=== PATIENT | female | born 1975 | race Caucasian/White ===

== ENCOUNTER 2021-06-02 13:23 | Emergency (ER) | payer OTHER, SELFPAY ==
--- NOTE | ~2021-06-02 | CT_ITS ---
EXAMINATION: CT abdomen pelvis wo con DATE: 06/02/2021 15:07 INDICATION: Left flank pain. TECHNIQUE: Computed tomography (CT) of the abdomen and pelvis was performed without intravenous contr ast. Automated exposure control and iterative reconstruction technique were employed. The dose-length product was 677.41 mGy-cm. COMPARISON: None. FINDINGS: The visualized portions of the lung bases demonstrate mild atelectasis. No pleural effusion . The heart size is normal. No pericardial effusion. The liver, gallbladder, spleen, pancreas, and ri ght adrenal gland are normal. There is a 2.1 cm mass in left adrenal gland measuring low-attenuation, consistent with an adenoma. The kidneys are normal. There is no urolithiasis. There are inserts in t he fallopian tubes. There is a left inguinal hernia containing fat. There is diverticulosis of the co seven without evidence of diverticulitis. There are no dilated loops of bowel. The appendix is normal. There are no pathologically enlarged lymph nodes. There is no free intraperitoneal fluid. There are c hronic bilateral L5 pars defects. There is 4 mm anterolisthesis of L5 on S1. There is moderate lower lumbar and lower thoracic spondylosis. IMPRESSION: 1. No urolithiasis. 2. Left inguinal hernia containing fat. Reviewed, dictated and finalized at location A.
[2021-06-02 13:37] VITALS: BP 119/76; PULSE 88; RESP 16; TEMP 36.1; O2SAT 99
[2021-06-02] MEDS: KETOROLAC (*BKC) 60 MG/2 ML VIAL IM (14:14)
[2021-06-02 14:16] LABS: Basophils Absolute Auto 0.04 K/mm3 (0.00-0.10); Basophils Percent Auto 0.5 % (0.0-1.0); Eosinophils Absolute Auto 0.08 K/mm3 (0.02-0.50); Hematocrit 42.9 % (35.0-49.0); Hemoglobin 14.1 g/dL (12.0-15.0); Immature Granulocyte Percent A 1.2 % (0.0-0.0); Lymphocytes Absolute Auto 2.64 K/mm3 (1.10-4.50); Lymphocytes Percent Auto 32.6 % (18.0-42.0); Mean Corpuscular HGB Conc 32.9 g/dL (32.0-36.0); Mean Corpuscular Hemoglobin 31.1 pg (27.0-31.0); Mean Corpuscular Volume 94.5 fL (78.0-102.0); Mean Platelet Volume 10.6 fl (9.2-11.8); Monocytes Absolute Auto 0.53 K/mm3 (0.10-0.90); Monocytes Percent Auto 6.6 % (2.0-11.0); Neutrophils Absolute Auto 4.7 K/mm3 (1.7-7.2); Neutrophils Percent Auto 58.1 % (50.0-70.0); Platelet Count Result 291 K/mm3 (150-420); Red Blood Count 4.54 M/mm3 (4.20-5.40); Red Cell Distribution Width 12.4 % (11.6-14.4); White Blood Count 8.1 K/mm3 (4.8-10.8)
[2021-06-02 14:23] LABS: Add Urine Microscopic? YES; Appearance Urine Clear (Clear); Bilirubin Urine Negative (Negative); Blood Urine Negative (Negative); Color Urine Light Yellow (Yellow); Glucose Urine UA Negative (Negative); Ketones Urine Negative (Negative); Leukocyte Esterase Ur 1+ (Negative); Nitrate Urine Negative (Negative); Protein Urine Negative (Negative); Specific Grav Ur >= 1.030 (1.010-1.020); Urobilinogen Urine 0.2 mg/dL (0.2-1.0); pH Urine 5.5 (5.0-8.0)
[2021-06-02 14:30] LABS: Amphetamine Screen Urine Negative (Negative); Barbiturate Screen Urine Negative (Negative); Benzodiazepines Screen Urine Negative (Negative); Cannabinoid Screen Urine Positive (Negative); Cocaine Screen Urine Negative (Negative); Methadone Screen Urine Negative (Negative); Opiate Screen Urine Negative (Negative); Phencyclidine Screen Urine Negative (Negative)
[2021-06-02 14:31] LABS: Alanine Aminotransferase 33 U/L (14-59); Albumin Level 3.2 g/dL (3.4-5.0); Alkaline Phosphatase 139 U/L (46-116); Anion Gap 8 mmol/L (8-16); Aspartate Amino Transferase 15 U/L (15-37); Bilirubin,Total 0.2 mg/dL (0.00-1.00); Blood Urea Nitrogen 14 mg/dL (7-18); Calcium 8.7 mg/dL (8.5-10.1); Carbon Dioxide 29 mmol/L (21-32); Chloride 103 mmol/L (98-108); Estimated CRCL calculation 75 ml/min; Estimated Glomerular Filt Rate > 60; Ethanol < 3 mg/dL (0-6); Glucose 106 mg/dL (70-99); Osmolality Calculated 290 mOsm/kg (285-295); Potassium 4.3 mmol/L (3.5-5.1); Sodium 140 mmol/L (136-145); Total Protein 6.4 g/dL (6.4-8.2)
[2021-06-02 14:34] LABS: Lactic Acid Reflex 1.1 mmol/L (0.4-2.0)
[2021-06-02 14:36] LABS: Bacteria Urine 2+ /hpf; Squamous Epithelial Cell Urine Moderate /hpf (Few)
[2021-06-02 14:43] LABS: SPREG INTERNAL CONTROL Positive; Serum Qual hCG Negative
--- NOTE | 2021-06-02 16:32 | ED.ABDPAIN ---
HPI - Abdominal Pain General Chief Complaint: Urogenital-Female Stated Complaint: possible kidney infection Time Seen by Provider: 06/02/21 13:25 Source: patient and RN notes reviewed Mode of arrival: ambulatory Limitations: no limitations History of Present Illness MD elicited complaint: abdominal pain Onset (ago): day(s) (1) Location: suprapubic Severity: mild Pain scale (0-10): 4 Quality: cramping, aching and dull Radiation: none Exacerbating factors: nothing Relieving factors: nothing Associated symptoms: nausea Related Data Patient : No Allergies Allergy/AdvReac Type Severity Reaction Status Date / Time codeine Allergy Mild Itching Verified 06/02/21 13:42 nickel Allergy Mild Itching Verified 06/02/21 13:42 Review of Systems Review of Systems: All systems reviewed & are unremarkable except as noted in HPI and below PMFSH Past Medical History Medical History Abdominal pain Urinary tract infection Exam Const: General: no acute distress Nutritional Appearance: well nourished Orientation/consciousness: patient oriented x3 Limitations: no limitations HENMT: Head: normal to inspection Ears: external ears normal, TM's normal bilaterally and EAC's normal General nose exam: Normal external nose present and Normal nares present Face and sinus: normal facial exam and sinuses nontender Mouth: Yes lip normal and Yes moist mucous membranes Throat: posterior oropharynx normal Eyes: Conjunctivae: conjunctivae normal Pupils: Equal, round and reactive pupils present EOM: EOMs intact bilaterally Neck: Neck: normal visual inspection and no lymphadenopathy Chest: Chest palpation & inspection: normal inspection of the chest Resp: Effort & Inspection: normal respiratory effort Auscultation: clear to auscultation bilaterally Cardio: Rate: regular rate Rhythm: regular rhythm GI: GI Palp: Yes Soft to palpation and Yes Tenderness to palpation present (GI) (minimal suprapubic tenderness) : General: Yes no CVA tenderness Back/Spine/Pelvis: Back: no CVA tenderness Skin: General skin exam: normal color Rashes: no rashes Neuro: General: patient oriented x3, moves all extremities, no meningeal signs, no focal motor deficits and CN's II-XI intact bilaterally Extrem: General: normal to inspection and no pedal edema Psych: Appearance: grossly normal and well kempt Mental Status: mental status grossly normal Affect: normal affect Attitude: cooperative Thought content: Yes Normal thought content present Course Course Emergency Course: Pt was stable in the ED. less painful. Reevaluation(s) Date: 06/02/21 Time: 14:23 Vital Signs Vital signs: Vital Signs Temperature 36.1 C L 06/02/21 13:37 Pulse Rate 88 06/02/21 13:37 Respiratory Rate 16 06/02/21 13:37 Blood Pressure 119/76 06/02/21 13:37 Pulse Oximetry 99 06/02/21 13:37 Temperature 36.4 C L 06/02/21 16:42 Pulse Rate 88 06/02/21 16:42 Respiratory Rate 16 06/02/21 16:42 Blood Pressure 131/88 06/02/21 16:42 Pulse Oximetry 100 06/02/21 16:42 MDM - Abdominal Pain Differential Diagnosis Differential diagnosis: Likely abdominal pain and other (UTI, ) Medical Records Attestation: I reviewed the patient's medical records. Lab Data Attestation: I reviewed the patient's lab results. Result diagrams: 06/02/21 14:08 06/02/21 14:08 Labs: Lab Results 06/02/21 06/02/21 06/02/21 Range/Units 14:06 14:08 14:08 WBC (4.8-10.8) K/mm3 RBC (4.20-5.40) M/mm3 Hgb (12.0-15.0) g/dL Hct (35.0-49.0) % MCV (78.0-102.0) fL MCH (27.0-31.0) pg MCHC (32.0-36.0) g/dL RDW (11.6-14.4) % Plt Count (150-420) K/mm3 MPV (9.2-11.8) fl Immature Gran % (Auto) (0.0-0.0) % Neut % (Auto) (50.0-70.0) % Lymph % (Auto) (18.0-42.0) % Mckenzie % (Auto) (2.0-11.0) % Eos % (Auto) (1.0-6.0) % Bas
[2021-06-02] MEDS: cefTRIAXone 1 GM VIAL IM (16:38)
[2021-06-02 16:42] VITALS: BP 131/88; PULSE 88; RESP 16; TEMP 36.4; O2SAT 100
== END 2021-06-02 16:43 | disposition home or self-care (01) ==
PROVIDERS: Emergency Provider Emergency Medicine; PCP Family Medicine
DX: N39.0 Urinary tract infection, site not specified (principal); R10.9 Unspecified abdominal pain
CPT/HCPCS: 36415; 74176; 80053; 80307; 81001; 83605; 84703; 85025; 96372; 99284; J0696; J1885

== ENCOUNTER 2022-10-14 18:38 | Emergency (ER) | payer OTHER, SELFPAY ==
[2022-10-14 18:41] VITALS: BP 126/97; PULSE 116; O2SAT 99
[2022-10-14 18:43] VITALS: TEMP 36.8
[2022-10-14 18:45] VITALS: BP 126/97; PULSE 113; RESP 17; TEMP 36.8; O2SAT 98
--- NOTE | 2022-10-14 18:55 | ED.DENTAL ---
HPI - Dental/Oral General Chief complaint: Dental/Oral Stated complaint: facial infection Time Seen by Provider: 10/14/22 18:44 Source: patient Mode of arrival: ambulatory Limitations: no limitations History of Present Illness HPI Narrative: patient is a 47-year-old female with left upper jaw pain and sent to the emergency room from the primary doctor for antibiotics. MD Complaint: tooth pain Location: Tooth # (16) Onset (ago): day(s) (2 (chronic issue however for many months)) Duration: constant Severity: moderate Severity scale (1-10): 6 Relieving factors: nothing Exacerbating factors: chewing, cold, heat, drinking fluids and swallowing Context: history of dental caries and poor dental care Associated symptoms: gum swelling and pain with swallowing Treatment prior to arrival: none Related Data Allergies Allergy/AdvReac Type Severity Reaction Status Date / Time codeine Allergy Mild Itching Verified 10/14/22 18:49 nickel Allergy Mild Itching Verified 10/14/22 18:49 Review of Systems Review of Systems: All systems reviewed & are unremarkable except as noted in HPI and below Constitutional: Constitutional: Reports no additional constitutional complaints Eyes: Eyes: Reports no additional eye complaints ENT: Reports system reviewed and no additional complaints, except as documented Comments: dental pain and carries with a swollen left face Cardiovascular: Cardiovascular: Reports no additional cardiovascular complaints Respiratory: Respiratory: Reports no additional respiratory complaints Gastrointestinal: Gastrointestinal: Reports no additional gastrointestinal complaints Genitourinary: Genitourinary: Reports no additional female genitourinary complaints Musculoskeletal: Musculoskeletal: Reports no additional musculoskeletal complaints Integumentary/Breasts: Skin/Breast: Reports system reviewed and no additional complaints, except as docu Neurologic: Reports system reviewed and no additional complaints, except as documented Psychiatric: Psychiatric: Reports no additional psychiatric complaints Endocrine: Endocrine: Reports no additional endocrine complaints Hematologic/Lymphatic: Hematologic/Lymphatic: Reports no additional hematologic/lymphatic complaints Allergic/Immunologic: Allergic/Immunologic: Reports no additional allergic/immunologic complaints PMFSH Past Medical History Medical History Abdominal pain Urinary tract infection Exam Const: General: healthy appearing Nutritional Appearance: well nourished Orientation/consciousness: patient oriented x3 Limitations: no limitations HENMT: Head: normal to inspection Teeth and gingiva: abnormal tooth and associated gingiva (left upper mouth dental carries and gum decay associated (tooth 16)) Other: Swollen left cheek Eyes: Conjunctivae: conjunctivae normal Neck: Neck: normal visual inspection Chest: Chest palpation & inspection: normal inspection of the chest Resp: Effort & Inspection: normal respiratory effort Cardio: Rate: regular rate Rhythm: regular rhythm Heart sounds: no murmurs GI: Auscultation: normal bowel sounds : General: Yes bladder normal to palpation Back/Spine/Pelvis: Back: no CVA tenderness Skin: General skin exam: normal color Neuro: General: patient oriented x3 Cranial nerves: Yes Nystagmus not present Speech: normal speech Extrem: General: normal to inspection Psych: Mental Status: mental status grossly normal Course Vital Signs Vital signs: Vital Signs Pulse Rate 116 H 10/14/22 18:41 Blood Pressure 126/97 H 10/14/22 18:41 Pulse Oximetry 99 10/14/22 18:41 Oxygen Delivery Room Air 10/14/22 18:41 Temperature 36.8 C 10/14/22 18:45 Pulse Rate 113 H 10/14/22 18:45 Respiratory Rate 17 10/14/22 18:45 Blood Pressure 126/97 H 10/14/22 18:45 Pulse Oximetry 98 10/14/22 18:45 Oxygen Delivery Room Air 10/14
[2022-10-14] MEDS: AMOXICILLIN/CLAVULANATE K 875-125 MG TAB 1 TABLET PO (19:02)
== END 2022-10-14 19:14 | disposition home or self-care (01) ==
LOC: CHSED 19:07
PROVIDERS: Emergency Provider Emergency Medicine; PCP Family Medicine
DX: K02.9 Dental caries, unspecified (principal); K05.10 Chronic gingivitis, plaque induced; R68.84 Jaw pain
CPT/HCPCS: 99283; A9270

== ENCOUNTER 2022-10-21 16:04 | Outpatient (CLI) | payer OTHER, SELFPAY ==
--- NOTE | ~2022-10-21 | XR_ITS ---
EXAMINATION: XR elbow RT min 3V, XR wrist RT min 3V DATE: 10/21/2022 16:24 INDICATION: Right wrist and elbow pain post fall 7 weeks prior TECHNIQUE: 1. Anteroposterior, two oblique and lateral views of the elbow were obtained. 2. Dorsal palmar, ulnar deviation, lateral and oblique views of the right wrist were obtained. COMPARISON: None. FINDINGS: Alignment is normal from the right elbow through the hand. No fracture. Joint spaces are normal. No r ight elbow joint effusion. Soft tissues are unremarkable. IMPRESSION: 1. Negative right elbow and wrist radiographs. Reviewed, dictated and finalized at location A. IMPRESSION: 1. Negative right elbow and wrist radiographs.
== END 2022-10-21 16:05 | disposition home or self-care (01) ==
LOC: CHSIMG 16:06
PROVIDERS: PCP Family Medicine; Visit Provider Family Medicine
DX: S69.91XA Unspecified injury of right wrist, hand and finger(s), initial encounter (principal)
CPT/HCPCS: 73080; 73110

== ENCOUNTER 2022-11-18 10:05 | Outpatient (CLI) | payer OTHER, SELFPAY ==
--- NOTE | ~2022-11-18 | MR_ITS ---
EXAMINATION: MR cervical spine wo con DATE: 11/18/2022 11:27 INDICATION: Bilateral hand numbness. TECHNIQUE: Magnetic resonance imaging (MRI) of the cervical spine was performed without intravenous c ontrast. Sequences included sagittal T2-weighted FSE, sagittal T2-weighted FS FSE, sagittal T1-weight ed FSE, axial MERGE, and axial T2-weighted FSE. COMPARISON: None FINDINGS: There is mild kyphosis of lower cervical spine. Vertebral body heights are normal. There is moderately decreased disc height at C5-C6. The spinal cord signal intensity is normal. The following disc levels are specifically discussed: C2-C3: The disc does not extend beyond the endplate margin. There is no uncovertebral joint osteoarth ritis. There is mild bilateral facet joint osteoarthritis. There is no neural foraminal stenosis. The re is no central canal stenosis. C3-C4: The disc does not extend beyond the endplate margin. There is no uncovertebral joint osteoarth ritis. There is no facet joint osteoarthritis. There is no neural foraminal stenosis. There is no torrey tral canal stenosis. C4-C5: The disc is bulging. There is no uncovertebral joint osteoarthritis. There is mild right and m oderate left facet joint osteoarthritis. There is no neural foraminal stenosis. There is mild central canal stenosis. C5-C6: The disc is bulging. There is severe bilateral uncovertebral joint osteoarthritis. There is mo derate bilateral facet joint osteoarthritis. There is mild right and severe left neural foraminal sheryl nosis. There is mild central canal stenosis. C6-C7: There is a small central extrusion. There is mild bilateral uncovertebral joint osteoarthritis . There is mild bilateral facet joint osteoarthritis. There is no neural foraminal stenosis. There is no central canal stenosis. C7-T1: The disc does not extend beyond the endplate margin. There is no uncovertebral joint osteoarth ritis. There is mild bilateral facet joint osteoarthritis. There is no neural foraminal stenosis. The re is no central canal stenosis. IMPRESSION: 1. Moderate spondylosis at C5-C6 and mild spondylosis at other levels. Reviewed, dictated and finalized at location E.
--- NOTE | ~2022-11-18 | MR_ITS ---
EXAMINATION: MR TMJS DATE: 11/18/2022 11:27 INDICATION: Temporomandibular joint syndrome. TECHNIQUE: Magnetic resonance imaging (MRI) of the temporomandibular joints was performed without int ravenous contrast in the open-mouth and closed mouth positions. COMPARISON: None. FINDINGS: The right mandibular condyle is normal in morphology. There is abnormal anterior displacement of the disc with mouth closed. There is decreased anterior translation of the mandibular condyle with mouth open. There is persistent abnormal anterior displacement of the disc with mouth open. The left mandibular condyle is normal in morphology. There is abnormal anterior displacement of the d isc with mouth closed. There is decreased anterior translation of the mandibular condyle with mouth o pen. There is persistent abnormal anterior displacement of the disc with mouth open. IMPRESSION: 1. 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 2. Abnormal anterior displacement of the disc of left temporomandibular joint in both closed mouth an d open mouth positions. Reviewed, dictated and finalized at location E. IMPRESSION: 1. 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 2. Abnormal anterior displacement of the disc of left temporomandibular joint i n both closed mouth and open mouth positions.
== END 2022-11-18 10:06 | disposition home or self-care (01) ==
LOC: CHSIMG 10:07
PROVIDERS: PCP Family Medicine; Visit Provider Family Medicine
DX: R20.0 Anesthesia of skin (principal); M43.02 Spondylolysis, cervical region; M26.69 Other specified disorders of temporomandibular joint
CPT/HCPCS: 70336; 72141

== ENCOUNTER 2022-11-30 19:44 | Emergency (ER) | payer OTHER, SELFPAY ==
--- NOTE | ~2022-11-30 | CT_ITS ---
EXAMINATION: CT sinus wo con DATE: 11/30/2022 20:48 INDICATION: TECHNIQUE: Computed tomography (CT) of the paranasal sinuses was performed without intravenous contra st. The dose-length product (DLP) was 265.49 mGy-cm. Iterative reconstruction was used. COMPARISON: None FINDINGS: There is normal development and pneumatization of the paranasal sinuses. Retention cyst or polyp in the left maxillary sinus. Moderate mucosal thickening in the left maxillary sinus which occl udes the left ostiomeatal unit. The frontal, sphenoid, ethmoid, and right maxillary sinuses are clear . The right ostiomeatal complex is patent. Visualized soft tissues are unremarkable. IMPRESSION: Left maxillary retention cyst/polyp. 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 Reviewed, dictated and finalized at location K. IMPRESSION: Left maxillary retention cyst/polyp. Moderate mucoperiosteal disease in the lef t medullary sinus which occludes the left ostiomeatal unit.
[2022-11-30 19:48] VITALS: PULSE 103; RESP 16; TEMP 36.6; O2SAT 98
--- NOTE | 2022-11-30 20:04 | ED.DENTAL ---
HPI - Dental/Oral General Chief complaint: Nausea/Vomiting/Diarrhea Stated complaint: vomiting Time Seen by Provider: 11/30/22 19:45 Source: patient and RN notes reviewed Mode of arrival: ambulatory Limitations: no limitations History of Present Illness HPI Narrative: patient states that she had a dental infection about 2 weeks ago. She was put on antibiotics. She had return of her pain went to see the dentist for problems with her TMJ had an x-ray done and was found to have an infection in her sinus. She was started on penicillin but she said the pain has gotten much worse and she has been vomiting. Complaint: tooth pain ( facial pain) Onset (ago): day(s) (1) Duration: constant Severity: moderate Relieving factors: nothing Exacerbating factors: chewing Context: history of dental caries Treatment prior to arrival: other (PCN) Related Data Home Medications Medication Instructions Recorded Confirmed penicillin V potassium 500 mg mg 11/30/22 tablet Allergies Allergy/AdvReac Type Severity Reaction Status Date / Time codeine Allergy Mild Itching Verified 11/30/22 19:45 nickel Allergy Mild Itching Verified 11/30/22 19:45 Review of Systems Review of Systems: All systems reviewed & are unremarkable except as noted in HPI and below Gastrointestinal: Gastrointestinal: Reports nausea and Reports vomiting PMFSH Past Medical History Medical History (Updated 12/01/22 @ 00:01 by Juanita Pereyra) Abdominal pain Urinary tract infection Surgical History Surgical History (Updated 11/30/22 @ 20:13 by Jose David Wooten MD) IUD mechanical complication Exam Const: General: no acute distress, alert and ill appearing acutely Nutritional Appearance: well nourished Orientation/consciousness: patient oriented x3 Limitations: no limitations Other: Female tech in the room during examination. HENMT: Head: normal to inspection Ears: external ears normal Face/Nose/Sinus: Normal external nose present Face and sinus: sinus tenderness maxillary Mouth: Yes moist mucous membranes Eyes: Conjunctivae: conjunctivae normal Pupils: Equal, round and reactive pupils present EOM: EOMs intact bilaterally Neck: Neck: normal visual inspection and no lymphadenopathy Resp: Effort & Inspection: normal respiratory effort Auscultation: clear to auscultation bilaterally Cardio: Rate: regular rate Rhythm: regular rhythm GI: GI Palp: Yes Soft to palpation and No Tenderness to palpation present (GI) Auscultation: normal bowel sounds Back/Spine/Pelvis: Cervical Spine: cervical ROM normal Thoracic/Lumbar Spine: thoraco-lumbar ROM normal Skin: General skin exam: normal color Rashes: no rashes Neuro: General: patient oriented x3, moves all extremities, no focal motor deficits and CN's II-XI intact bilaterally Speech: normal speech Gait exam (Neuro): Normal gait present Extrem: General: normal to inspection and no clubbing, cyanosis or edema Psych: Mental Status: mental status grossly normal Affect: normal affect Attitude: cooperative Course Vital Signs Vital signs: Vital Signs Temperature 36.6 C 11/30/22 19:48 Pulse Rate 103 H 11/30/22 19:48 Respiratory Rate 16 11/30/22 19:48 Pulse Oximetry 98 11/30/22 19:48 Oxygen Delivery Room Air 11/30/22 19:48 Temperature 36.6 C 11/30/22 19:48 Pulse Rate 103 H 11/30/22 19:48 Respiratory Rate 16 11/30/22 19:48 Pulse Oximetry 98 11/30/22 19:48 Oxygen Delivery Room Air 11/30/22 19:48 MDM - Dental/Oral Differential Diagnosis Differential diagnosis: Likely other ( sinus abscess, periorbital infection, electrolyte abnormality) Lab Data Attestation: I reviewed the patient's lab results. Discharge Plan Discharge Clinical Impression: Sinusitis Qualifiers: Sinusitis location: maxillary Chronicity: acute Recurrence: non-recurrent Qualified Code(s): J01.00 - Acute maxillary sinusitis, unspecified Patient Disposition: Home, Self-
--- NOTE | 2022-11-30 20:05 | PC.NURSE ---
Assisted Dr. Wooten w/ Pt Eval
[2022-11-30 20:09] VITALS: BP 126/83
[2022-11-30 20:20] LABS: Basophils Absolute Auto 0.04 K/mm3 (0.00-0.10); Basophils Percent Auto 0.4 % (0.0-1.0); Eosinophils Absolute Auto 0.12 K/mm3 (0.02-0.50); Eosinophils Percent Auto 1.1 % (1.0-6.0); Hemoglobin 14.5 g/dL (12.0-15.0); Immature Granulocyte Percent A 0.9 % (0.0-0.0); Lymphocytes Absolute Auto 2.21 K/mm3 (1.10-4.50); Lymphocytes Percent Auto 20.8 % (18.0-42.0); Mean Corpuscular HGB Conc 32.2 g/dL (32.0-36.0); Mean Corpuscular Hemoglobin 30.9 pg (27.0-31.0); Mean Corpuscular Volume 95.7 fL (78.0-102.0); Mean Platelet Volume 10.8 fl (9.2-11.8); Monocytes Absolute Auto 0.91 K/mm3 (0.10-0.90); Monocytes Percent Auto 8.6 % (2.0-11.0); Neutrophils Absolute Auto 7.2 K/mm3 (1.7-7.2); Neutrophils Percent Auto 68.2 % (50.0-70.0); Platelet Count Result 314 K/mm3 (150-420); Red Cell Distribution Width 12.4 % (11.6-14.4); White Blood Count 10.6 K/mm3 (4.8-10.8)
[2022-11-30 20:21] LABS: Pregnancy On Board Control Positive; Urine Pregnancy Test Negative
[2022-11-30 20:36] LABS: Lactic Acid Reflex 1.1 mmol/L (0.4-2.0)
[2022-11-30 20:45] LABS: Alanine Aminotransferase 44 U/L (14-59); Albumin Level 3.2 g/dL (3.4-5.0); Alkaline Phosphatase 186 U/L (46-116); Anion Gap 9 mmol/L (8-16); Aspartate Amino Transferase 25 U/L (15-37); Bilirubin,Total 0.1 mg/dL (0.00-1.00); Blood Urea Nitrogen 12 mg/dL (7-18); CRP 0.7 mg/dL (0.0-0.9); Carbon Dioxide 28 mmol/L (21-32); Chloride 105 mmol/L (98-108); Estimated CRCL calculation 64 ml/min; Estimated Glomerular Filt Rate > 60; Glucose 95 mg/dL (70-99); Osmolality Calculated 293 mOsm/kg (285-295); Potassium 4.1 mmol/L (3.5-5.1); Sodium 142 mmol/L (136-145); Total Protein 6.9 g/dL (6.4-8.2)
[2022-11-30] MEDS: CLINDAMYCIN HCL 150 MG CAP 300 MG PO (21:08)
[2022-11-30 21:12] VITALS: BP 110/66; PULSE 79; RESP 16; TEMP 36.6; O2SAT 98
== END 2022-11-30 21:13 | disposition home or self-care (01) ==
PROVIDERS: Emergency Provider Emergency Medicine; PCP Family Medicine
DX: J01.00 Acute maxillary sinusitis, unspecified (principal)
CPT/HCPCS: 36415; 70486; 80053; 81025; 83605; 85025; 86140; 99283; A9270

== ENCOUNTER 2023-07-04 15:06 | Outpatient (CLI) | payer OTHER, SELFPAY ==
--- NOTE | ~2023-07-04 | MM_ITS ---
EXAMINATION: MM screening [facility] BI w oscar HISTORY: Screening TECHNIQUE: Craniocaudal and mediolateral oblique 3-D tomosynthesis images were obtained and synthetic 2-D images were generated. CAD analysis was submitted and interpreted. COMPARISON: No prior mammogram is available for comparison at this institution. BREAST PARENCHYMAL COMPOSITION: Not Dense: Breast are almost entirely fatty. FINDINGS: There is no evidence of suspicious mass, calcification, or architectural distortion to sugg est malignancy in either breast. There has been no suspicious interval change. IMPRESSION: 1. No mammographic evidence of malignancy. 2. Recommend routine screening mammography in one year. BI-RADS Category 1: Negative Reviewed, dictated and finalized at location B.
== END 2023-07-04 15:07 | disposition home or self-care (01) ==
PROVIDERS: PCP Family Medicine; Visit Provider Family Medicine
DX: Z12.31 Encounter for screening mammogram for malignant neoplasm of breast (principal)
CPT/HCPCS: 77063; 77067